=== PATIENT | male | born 1945 | race Caucasian/White ===

== ENCOUNTER 2017-07-06 08:24 | Day surgery (SDC) | payer MEDICARE, BC ==
[~2017-07-06] VITALS: Ht 182.9 cm; Wt 115.7 kg
[~2017-07-06 08:24] MED LIST: Aspir 8181 MG PO; BASAGLAR K100 UNIT/1 SC; Flovent 110 MCG12 GM INH; Glucophage1000 MG PO; LOSA25 PO; SIMV40 PO; Vitamin D2000 UNIT PO
== END 2017-07-06 22:46 | disposition home or self-care (01) ==
LOC: ORSCMMR 08:24
PROVIDERS: Internal Medicine Gastroenterology
PROC: 0DBL8ZX Excision of Transverse Colon, Via Natural or Artificial Opening Endoscopic, Diagnostic (ICD-10-PCS; principal; 2017-07-06 09:30)
PROC: 3E0H8GC Introduction of Other Therapeutic Substance into Lower GI, Via Natural or Artificial Opening Endoscopic (ICD-10-PCS; principal; 2017-07-06 09:30)
PROC: 0DBM8ZX Excision of Descending Colon, Via Natural or Artificial Opening Endoscopic, Diagnostic (ICD-10-PCS; principal; 2017-07-06 09:30)
PROC: 0DBK8ZX Excision of Ascending Colon, Via Natural or Artificial Opening Endoscopic, Diagnostic (ICD-10-PCS; principal; 2017-07-06 09:30)
DX: Z12.11 Encounter for screening for malignant neoplasm of colon (principal); D12.3 Benign neoplasm of transverse colon; D12.4 Benign neoplasm of descending colon; D12.2 Benign neoplasm of ascending colon; K63.5 Polyp of colon; E11.9 Type 2 diabetes mellitus without complications; J44.9 Chronic obstructive pulmonary disease, unspecified; Z87.891 Personal history of nicotine dependence; G47.33 Obstructive sleep apnea (adult) (pediatric); Z79.82 Long term (current) use of aspirin; Z79.899 Other long term (current) drug therapy; K64.8 Other hemorrhoids
CPT/HCPCS: 82947; 88305; J2250; J3010; J7120

== ENCOUNTER → 2017-09-21 | Outpatient (CLI) | payer MEDICARE, BC ==
[2017-09-21 18:49] LABS: Percent Saturation 20.8 % (20.0-50.0)
== END | disposition home or self-care (01) ==
LOC: LAB SHORT 10:00 → LAB 10:00
PROVIDERS: Internal Medicine Hematology & Oncology
DX: G60.9 Hereditary and idiopathic neuropathy, unspecified (principal); D64.9 Anemia, unspecified
CPT/HCPCS: 82607; 82728; 82746; 83540; 83550

== ENCOUNTER → 2020-02-18 | Outpatient (CLI) | payer MEDICARE, BC ==
[2020-02-18 10:40] LABS: Source, Urine Clean Catch
[2020-02-18 12:37] LABS: Bilirubin, Urine Neg (Neg); Blood, Urine Neg (Neg); Glucose Qualitative, Urine 1+ (Neg); Ketones, Urine Neg (Neg); Leukocyte Esterase, Urine Neg (Neg); Nitrite, Urine Neg (Neg); Protein, Urine Neg (Neg); Urobilinogen, Urine NORM (Normal)
[2020-02-18 12:46] LABS: Appearance, Urine Clear (Clear); Color, Urine Yellow (P-Yellow)
== END | disposition home or self-care (01) ==
LOC: LAB SHORT 10:35 → PLD 10:35
PROVIDERS: Family Medicine
DX: R31.9 Hematuria, unspecified (principal); R63.4 Abnormal weight loss
CPT/HCPCS: 81003

== ENCOUNTER 2022-07-16 17:29 | Inpatient (IN) | payer MEDICARE, BC ==
[~2022-07-16] VITALS: Ht 182.9 cm; Wt 107.5 kg
[~2022-07-16 17:29] MED LIST changes: +TAMS.4ER PO
[2022-07-16 18:13] LABS: BASOPHILS ABSOLUTE AUTO 0.04 K/mm3 (0.00-0.23); BASOPHILS PERCENT AUTO 0 % (0-2); EOSINOPHILS ABSOLUTE AUTO 0.03 K/mm3 (0.00-0.68); EOSINOPHILS PERCENT AUTO 0 % (0-6); Hematocrit 44.1 % (37.0-53.0); Hemoglobin 14.7 g/dL (13.5-17.5); IMMATURE GRAN ABSOLUTE AUTO 0.04 K/mm3 (0.00-0.10); IMMATURE GRAN PERCENT AUTO 0 % (0-1); LYMPHOCYTES ABSOLUTE AUTO 0.88 K/mm3 (0.84-5.20); LYMPHOCYTES PERCENT AUTO 9 % (21-46); MONOCYTES ABSOLUTE AUTO 0.57 K/mm3 (0.16-1.47); MONOCYTES PERCENT AUTO 6 % (4-13); Mean Corpuscular HGB 29.9 pg (26.0-34.0); Mean Corpuscular HGB Conc 33.3 g/dL (31.5-36.5); Mean Corpuscular Volume 90 fL (80-100); NEUTROPHILS ABSOLUTE AUTO 8.42 K/mm3 (1.96-9.15); NEUTROPHILS PERCENT AUTO 84 % (41-73); Platelet Count 275 K/mm3 (150-400); RDW Coefficient Variation 12.6 % (11.7-14.2); RDW Standard Deviation 41.2 fL (35.1-46.3); Red Blood Cell Count 4.92 M/mm3 (4.30-5.90); White Blood Cell Count 9.98 K/mm3 (4.00-11.30)
[2022-07-16 18:36] LABS: Albumin, Blood 3.9 g/dL (3.4-5.0); Albumin/Globulin Ratio 1.1 (0.8-1.8); Bilirubin, Total 0.5 mg/dL (0.1-1.0); Bun/Creatinine Ratio 24.4 (12.0-20.0); Calcium, Blood 9.1 mg/dL (8.5-10.1); Creatinine, Blood 0.9 mg/dL (0.60-1.20); Globulin, Blood 3.7 g/dL (2.2-4.0); Potassium, Blood 3.9 mmol/L (3.5-5.5); Total Protein, Blood 7.6 g/dL (6.4-8.2)
[2022-07-16] MEDS ORDERED: FINA5 PO (19:11)
[2022-07-16] MEDS ORDERED: Ventolin/Prove6.7 GM (19:11)
[2022-07-17 04:18] LABS: BASOPHILS ABSOLUTE AUTO 0.02 K/mm3 (0.00-0.23); BASOPHILS PERCENT AUTO 0 % (0-2); EOSINOPHILS ABSOLUTE AUTO 0.01 K/mm3 (0.00-0.68); EOSINOPHILS PERCENT AUTO 0 % (0-6); Hematocrit 41.6 % (37.0-53.0); Hemoglobin 13.6 g/dL (13.5-17.5); IMMATURE GRAN ABSOLUTE AUTO 0.04 K/mm3 (0.00-0.10); IMMATURE GRAN PERCENT AUTO 0 % (0-1); LYMPHOCYTES ABSOLUTE AUTO 1.11 K/mm3 (0.84-5.20); LYMPHOCYTES PERCENT AUTO 11 % (21-46); MONOCYTES ABSOLUTE AUTO 0.91 K/mm3 (0.16-1.47); MONOCYTES PERCENT AUTO 9 % (4-13); Mean Corpuscular HGB 29.8 pg (26.0-34.0); Mean Corpuscular HGB Conc 32.7 g/dL (31.5-36.5); Mean Corpuscular Volume 91 fL (80-100); Mean Platelet Volume 10.7 fL (9.1-12.4); NEUTROPHILS ABSOLUTE AUTO 8.12 K/mm3 (1.96-9.15); NEUTROPHILS PERCENT AUTO 80 % (41-73); Platelet Count 250 K/mm3 (150-400); RDW Coefficient Variation 12.8 % (11.7-14.2); RDW Standard Deviation 42.2 fL (35.1-46.3); Red Blood Cell Count 4.57 M/mm3 (4.30-5.90); White Blood Cell Count 10.21 K/mm3 (4.00-11.30)
[2022-07-17 04:37] LABS: Bun/Creatinine Ratio 27.7 (12.0-20.0); Calcium, Blood 8.4 mg/dL (8.5-10.1); Creatinine, Blood 0.76 mg/dL (0.60-1.20); Potassium, Blood 3.5 mmol/L (3.5-5.5)
--- NOTE | 2022-07-17 07:56 | NUR ---
ADMITTED DURING NOC FOR ABD MASS WTIH MET LESIONS. FAMILY AT BEDSIDE. PT WITH NG PATENT OF PALE GREEN. DILAUDID ORDERED FOR PAIN REPORTED EFFECTIVE. WAITING SURGICAL CX.
--- NOTE | 2022-07-17 14:01 | NUR ---
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
--- NOTE | 2022-07-17 14:09 | NUR ---
Pastoral visitation. Pt was en route to surgery with family close by, escorting him down the [place]. Family appeared supportive and stopped to provide opportunity for pre-surgical prayer for consolation which was provided. Pt appeared in good spirits and family proceeded to the waiting area. Pastoral care to remain available as needed.
--- NOTE | 2022-07-17 19:36 | NUR ---
SHIFT SUMMARY PT A&OX4, VSS/3LNC, PAIN MANAGED, STAND PIVOT WITH 2 PP MOD ASSIST TO BED FROM FAMILY JULIETA AT BEDSIDE. REPORT TO YISEL CORCORAN.
[2022-07-17] MEDS ORDERED: BASAGLAR K100 UNIT/1 SC (23:52)
--- NOTE | 2022-07-18 05:31 | NUR ---
SHIFT SUMMARY PT A&OX4, PLEASANT AND COOPERATIVE WITH CARE. NO ACUTE CHANGES. MEDICATED TWICE FOR PAIN. NPO, NG TO INT SUCTION. MOURA PATIENT AND DRAINING TO GRAVITY. OSTOMY OUTPUT BROWN/LIQUIDY. MIDLINE AQUACEL WITH A FEW AREAS OF LIGHT SHADOWING. CALLS APPROPRIATELY, CALL LIGHT WITHIN REACH.
--- NOTE | 2022-07-18 13:34 | NUR ---
PT UP TO CHAIR AT BEDSIDE. SBA WITH TRANSFER. PT REPORTS SOME PAIN WITH ROLLING OUT OF BED BUT TOLERATED WELL. PASSING GAS FROM STOMA. NGT CANISTER CHANGED. 400 IN CANISTER SINCE PREVIOUS SHIFT. PT HAS EATEN APPROX 300 ML OF ICE CHIPS.
--- NOTE | 2022-07-18 16:14 | NUR ---
SHIFT SUMMARY POD 1 EXLAP WITH NEW COLOSTOMY PT REPORTS PAIN TOLERABLE PER EMAR, IMPROVED SINCE HE GOT UP TO CHAIR. IN CHAIR FOR MOST OF SHIFT. PASSING FLATUS THROUGH STOMA, PT PARTICIPATING IN EDUCATION, LEARNING TO BURP OSTOMY. PT RECEPTIVE TO EDUCATION AND ASKING QUESTIONS. MIDLINE INCISION WITH SMALL SHADOWED SPOTS, UNCHANGED SINCE THIS AM. USING INCINTIVE SPIROMETER FREQUENTLY. MOURA REMOVED, PT VOIDING. NGT REMAINS TO INTERMITTENT SUCTION. SECRETIONS CLEARER THIS AFTERNOON, PRIMARILY ICE CHIPS PATIENT HAS BEEN EATING. PLAN IS TO CONTINUE AMBULATION AND AWAIT RETURN OF BOWEL FUNCTION.
[2022-07-19 06:17] LABS: BASOPHILS ABSOLUTE AUTO 0.05 K/mm3 (0.00-0.23); BASOPHILS PERCENT AUTO 1 % (0-2); EOSINOPHILS ABSOLUTE AUTO 0.08 K/mm3 (0.00-0.68); EOSINOPHILS PERCENT AUTO 1 % (0-6); Hematocrit 39.6 % (37.0-53.0); Hemoglobin 12.9 g/dL (13.5-17.5); IMMATURE GRAN ABSOLUTE AUTO 0.05 K/mm3 (0.00-0.10); IMMATURE GRAN PERCENT AUTO 1 % (0-1); LYMPHOCYTES ABSOLUTE AUTO 1.26 K/mm3 (0.84-5.20); LYMPHOCYTES PERCENT AUTO 12 % (21-46); MONOCYTES ABSOLUTE AUTO 1.21 K/mm3 (0.16-1.47); MONOCYTES PERCENT AUTO 12 % (4-13); Mean Corpuscular HGB 30.5 pg (26.0-34.0); Mean Corpuscular HGB Conc 32.6 g/dL (31.5-36.5); Mean Corpuscular Volume 94 fL (80-100); Mean Platelet Volume 10.4 fL (9.1-12.4); NEUTROPHILS ABSOLUTE AUTO 7.48 K/mm3 (1.96-9.15); NEUTROPHILS PERCENT AUTO 74 % (41-73); Platelet Count 231 K/mm3 (150-400); RDW Coefficient Variation 12.9 % (11.7-14.2); Red Blood Cell Count 4.23 M/mm3 (4.30-5.90); White Blood Cell Count 10.13 K/mm3 (4.00-11.30)
--- NOTE | 2022-07-19 06:31 | NUR ---
SHIFT SUMMARY PT A&OX4, PLEASANT AND COOPERATIVE. NO ACUTE CHANGES, VSS. MEDICATED FOR PAIN TWICE. REMAINS NPO, ASIDE FROM SOME ICE CHIPS. NGT TO INT SUCTION, BROWN OUTPUT. MIDLINE AQUACEL WITH A FEW SHADOWED AREAS. OSTOMY OUTPUT BROWN/LIQUIDY, PASSING FLATUS. PT SBA TO BATHROOM. CALLS APPROPRIATELY, CALL LIGHT WITHIN REACH.
[2022-07-19 06:37] LABS: Bun/Creatinine Ratio 25.6 (12.0-20.0); Calcium, Blood 8.5 mg/dL (8.5-10.1); Creatinine, Blood 0.98 mg/dL (0.60-1.20); Potassium, Blood 3.9 mmol/L (3.5-5.5)
--- NOTE | 2022-07-19 16:28 | NUR ---
SHIFT SUMMARY POD 2 COLECTOMY WITH COLOSTOMY. PT ADVANCED TO CLEAR LIQUIDS TODAY, SPOKE WITH PATIENT ABOUT GOING SLOW AND TAKING IN SMALL AMOUNTS, HE HAS BEEN FOLLOWING THE ORDERS WELL. VERY EXCITED TO EAT FOOD. MINIMAL OUTPUT FROM COLOSTOMY TODAY, PASSING FLATUS. EDUCATING PATIENT ON BURPING AND EMPTYING BAG, HE IS ENGAGED AND ASKS QUESTIONS. AMBULATING FREQUENTLY IN THE HALLS, REPORTS PAIN MUCH IMPROVED TODAY AND HAS DENIED NEED FOR MEDICATION TODAY.
--- NOTE | 2022-07-19 17:15 | NUR ---
Pt. is awake sittiing in a chair and welcomes my visit. Pt. is pleasant and displays an attitude of optimism. As we facilitate a life review the Pt. verbalizes that he lost his recently. had battled dementia and then had a stroke. Pt. displayed evidence of genuine grief as he recalled the story of his . With theraputic listening and a calm encouraging presence, Pt. was able to cathartically share some of his grief. As pastoral care is adminisitered, rapport is established. Pt. is considering [employer] after he recovers from his present surgery. Prayed for Pt. and will provide him with [facility] info. Pt. verbalized gratitude for the spiritual care visit.
--- NOTE | 2022-07-20 05:06 | NUR ---
SHIFT SUMMARY NO ACUTE CHANGES TO REPORT OVERNIGHT. PT HAS RESTED T/O THE NIGHT, SOME ABD PAIN THIS SHIFT. MEDICATED PER EMAR WITH EFFECT. IV ANTIBIOTICS CONTINUED PER ORDERS. PT HAS BEEN INDEPENDENT IN THE ROOM. PT TOLERATING PO INTAKE. NOT VERY MUCH OUTPUT IN OSTOMY THIS SHIFT, OUTPUT IS BROWN AND LIQUID. VITALS STABLE. PLAN IS FOR MORE OSTOMY TEACHING TODAY. BED IN LOWEST POSITION, CALL LIGHT WITHIN REACH.
[2022-07-20 05:25] LABS: BASOPHILS ABSOLUTE AUTO 0.06 K/mm3 (0.00-0.23); BASOPHILS PERCENT AUTO 1 % (0-2); EOSINOPHILS ABSOLUTE AUTO 0.37 K/mm3 (0.00-0.68); EOSINOPHILS PERCENT AUTO 5 % (0-6); Hematocrit 36.9 % (37.0-53.0); IMMATURE GRAN ABSOLUTE AUTO 0.03 K/mm3 (0.00-0.10); IMMATURE GRAN PERCENT AUTO 0 % (0-1); LYMPHOCYTES ABSOLUTE AUTO 1.23 K/mm3 (0.84-5.20); LYMPHOCYTES PERCENT AUTO 17 % (21-46); MONOCYTES ABSOLUTE AUTO 0.84 K/mm3 (0.16-1.47); MONOCYTES PERCENT AUTO 12 % (4-13); Mean Corpuscular HGB 29.9 pg (26.0-34.0); Mean Corpuscular HGB Conc 32.5 g/dL (31.5-36.5); Mean Corpuscular Volume 92 fL (80-100); Mean Platelet Volume 10.4 fL (9.1-12.4); NEUTROPHILS ABSOLUTE AUTO 4.54 K/mm3 (1.96-9.15); NEUTROPHILS PERCENT AUTO 64 % (41-73); Platelet Count 230 K/mm3 (150-400); RDW Coefficient Variation 12.4 % (11.7-14.2); RDW Standard Deviation 41.9 fL (35.1-46.3); Red Blood Cell Count 4.02 M/mm3 (4.30-5.90); White Blood Cell Count 7.07 K/mm3 (4.00-11.30)
[2022-07-20 05:43] LABS: Bun/Creatinine Ratio 27.6 (12.0-20.0); Creatinine, Blood 0.8 mg/dL (0.60-1.20); Potassium, Blood 3.5 mmol/L (3.5-5.5)
--- NOTE | 2022-07-20 09:47 | NUR ---
Pt. is walking around his room when he welcomes my visit. Pt.is pleasant and verbalizes his understanding of what needs to take place before can be discharged. Pt. displayed evidence of optimism, and confidence in beating his prognosis. Provided Pt. with information on [facility] per our discussion yeaterday about the recent loss of his son. Pt. verbalizedgratitude for the spiritual care visit.
--- NOTE | 2022-07-20 17:16 | NUR ---
SUMMARY NO ACUTE CHANGES T/O SHIFT. PT WORKED WITH THERAPY AND IS INDEPENDENT. HAS NOT REQUIRED MEDS FOR PAIN T/O SHIFT, STATING TOLERABLE. EMTPIED AND BURPED OWN OSTOMY APPLIANCE. TOLERATED FULL LIQUID LUNCH. CALL LIGHT IN REACH.
--- NOTE | 2022-07-21 07:50 | NUR ---
summary med po x2 for pain tonight.ambulating in halls without distress. ostomy patent of brown liquid.
--- NOTE | 2022-07-21 08:08 | NUR ---
DR HOLLINGSWORTH IN TO SEE PT.
--- NOTE | 2022-07-21 13:48 | NUR ---
assisted with ostomy dressing change with artie miles rn. stoma was red. patient education on how to change ostomy dressing. surgical dressing changed and cleaned on abdomen. On the lower left and right bottom of ostomy dressing there was two blisters. One on the lower right, and lower left.
--- NOTE | 2022-07-21 17:32 | NUR ---
No acute changes. patient tolerated diet change. patient education given by artie miles on ostomy care. assisted with ostomy dressing change. Patient was ready to learn about ostomy care. medicated once for pain. patient visited with family off and on during the day.
--- NOTE | 2022-07-21 17:38 | NUR ---
REVIEWED AND AGREE WITH SN RODNEY Berman'S SUMMARY.
[2022-07-22 04:09] LABS: BASOPHILS ABSOLUTE AUTO 0.07 K/mm3 (0.00-0.23); BASOPHILS PERCENT AUTO 1 % (0-2); EOSINOPHILS ABSOLUTE AUTO 0.48 K/mm3 (0.00-0.68); EOSINOPHILS PERCENT AUTO 7 % (0-6); Hematocrit 36.9 % (37.0-53.0); Hemoglobin 12.4 g/dL (13.5-17.5); IMMATURE GRAN ABSOLUTE AUTO 0.15 K/mm3 (0.00-0.10); IMMATURE GRAN PERCENT AUTO 2 % (0-1); LYMPHOCYTES ABSOLUTE AUTO 1.48 K/mm3 (0.84-5.20); LYMPHOCYTES PERCENT AUTO 21 % (21-46); MONOCYTES ABSOLUTE AUTO 0.89 K/mm3 (0.16-1.47); MONOCYTES PERCENT AUTO 12 % (4-13); Mean Corpuscular HGB 30.5 pg (26.0-34.0); Mean Corpuscular HGB Conc 33.6 g/dL (31.5-36.5); Mean Corpuscular Volume 91 fL (80-100); Mean Platelet Volume 10.7 fL (9.1-12.4); NEUTROPHILS ABSOLUTE AUTO 4.12 K/mm3 (1.96-9.15); NEUTROPHILS PERCENT AUTO 57 % (41-73); Platelet Count 284 K/mm3 (150-400); RDW Coefficient Variation 12.4 % (11.7-14.2); RDW Standard Deviation 40.3 fL (35.1-46.3); Red Blood Cell Count 4.07 M/mm3 (4.30-5.90); White Blood Cell Count 7.19 K/mm3 (4.00-11.30)
--- NOTE | 2022-07-22 07:26 | NUR ---
SUMMARY PT WITH NO ACUTE CHANGES.
[2022-07-22] MEDS ORDERED: Acetaminophen650 M1 PO (11:44)
[2022-07-22] MEDS ORDERED: DULCOLAX400 MG/5 M PO (11:45)
[2022-07-22] MEDS ORDERED: OXYC5 PO (11:47)
--- NOTE | 2022-07-22 12:00 | NUR ---
SHIFT SUMMARY PT A&OX4, VSS/RA, JAYLA PO, VOIDING WELL, AMB INDEPENDENTLY, DENIES PAIN, OSTOMY WITH BROWN LIQUID/START OF BROWN STOOL AND FLATUS-PT MANAGES HIMSELF. OSTOMY SUPPLIES PROVIDED TO PT FOR SKIN CARE, APPLIANCE CHANGE X4 ADHESIVE/STOMA PASTE AND STOMA POWDER AND ADH REMOVER. DISCUSSED CONVATE SAMPLE YENNY WAS ORDERED AND PT SHOULD EXPECT A TELEPHONE CALL OR [facility] FROM [facility]. AQUACEL DRESSING AND MEDIPORE DRESSINGS PROVIDED TO PT TO COVER MIDLINE INCISION CHRISTINA FOR 2 WEEKS UNTIL FU APPT WITH SURGEON. REPORT PROVIDED TO MARLEY CORCORAN.
--- NOTE | 2022-07-22 13:07 | NUR ---
DISCHARGE PT PROVIDED WITH WRITTEN AND VERBAL DISCHARGE INSTRUCTIONS; PT AND HIS SISTER VERBALIZED UNDERSTANDING. OSTOMY EDUCATION PROVIDED BY CATIA CORCORAN. DRESSINGS AND OSTOMY SUPPLIES PROVIDED. PT'S OSTOMY APPLIANCE CAME OFF PRIOR TO DISCHARGE, PT WAS ASSISTED TO CLEAN UP AND ATTATCH A NEW BAG ON THE OSTOMY APPLIANCE. PAIN MANAGED AT TIME OF DISCHARGE. SCRIPT PROVIDED FOR PAIN MEDICATION. MEDICATIONS FAXED TO [facility] PER PT REQUEST AND CONFIRMATION OF FAX RECEIVED. PT ASSISTED OUT IN W/C AT 1310.
== END 2022-07-22 13:11 | disposition home or self-care (01) | DRG 330 ==
LOC: ER 17:29 → SURS 20:22
PROVIDERS: Family Medicine; Student in an Organized Health Care Education/Training Program; Surgery; ADMIT Hospitalist
PROC: 0DBU0ZZ Excision of Omentum, Open Approach (ICD-10-PCS; 2022-07-17)
PROC: 0DNU0ZZ Release Omentum, Open Approach (ICD-10-PCS; 2022-07-17)
PROC: 0DNW0ZZ Release Peritoneum, Open Approach (ICD-10-PCS; 2022-07-17)
PROC: 0DH67UZ Insertion of Feeding Device into Stomach, Via Natural or Artificial Opening (ICD-10-PCS; principal; 2022-07-17 13:45)
PROC: 0D1L0Z4 Bypass Transverse Colon to Cutaneous, Open Approach (ICD-10-PCS; 2022-07-17 13:45)
PROC: 0DTL0ZZ Resection of Transverse Colon, Open Approach (ICD-10-PCS; 2022-07-17 13:45)
DX: C18.5 Malignant neoplasm of splenic flexure (principal); C77.2 Secondary and unspecified malignant neoplasm of intra-abdominal lymph nodes; C78.7 Secondary malignant neoplasm of liver and intrahepatic bile duct; K42.0 Umbilical hernia with obstruction, without gangrene; E66.9 Obesity, unspecified; E11.9 Type 2 diabetes mellitus without complications; J44.9 Chronic obstructive pulmonary disease, unspecified; G47.33 Obstructive sleep apnea (adult) (pediatric); I10 Essential (primary) hypertension; N40.0 Benign prostatic hyperplasia without lower urinary tract symptoms; D50.9 Iron deficiency anemia, unspecified; E78.5 Hyperlipidemia, unspecified; Z98.890 Other specified postprocedural states; Z87.891 Personal history of nicotine dependence; Z68.30 Body mass index [BMI] 30.0-30.9, adult; Z99.89 Dependence on other enabling machines and devices; Z79.4 Long term (current) use of insulin; Z79.51 Long term (current) use of inhaled steroids; Z79.82 Long term (current) use of aspirin; Z79.899 Other long term (current) drug therapy
CPT/HCPCS: 36415; 71045; 74177; 80048; 80053; 82947; 83605; 83690; 85025; 88305; 88307; 88309; 94640; 94664; 94760; 96374-59; 96375; 96376; 97112; 97161; 97166; 97530; 97535; 99285-25; A9270; J1100; J1170; J1650; J1815; J1885; J2270; J2405; J2543; J2704; J3010; J7030; Q9967

== ENCOUNTER 2022-08-11 06:17 | Day surgery (SDC) | payer MEDICARE, BC ==
[2022-08-11] VITALS (9 sets, daily range): BP systolic 98–121; BP diastolic 57–80
[~2022-08-11] VITALS: Ht 180.3 cm; Wt 101.0 kg
[~2022-08-11 06:17] MED LIST changes: +Acetaminophen650 M1 PO; +DULCOLAX400 MG/5 M PO; +FINA5 PO; +OXYC5 PO; +Ventolin/Prove6.7 GM
--- NOTE | 2022-08-11 08:05 | NUR ---
History, Chart, Medications and Allergies reviewed before start of procedure.LUNGS CLEAR, PRE OP TEACHING DONE. SON AT BEDSIDE. H/A, GLASSES AND DENTURES PLACED IN LABELED CONTAINERS AND INTO OR WITH PATIENT.
--- NOTE | 2022-08-11 10:23 | NUR ---
DISCHARGE NOTE Discharge instructions reviewed with patient. Patient verbalizes understanding. Copy given to patient to take home. Discharged via wheelchair to private car for ride home. Lungs clear T/O to Auscultation.
== END 2022-08-11 10:15 | disposition home or self-care (01) ==
LOC: ORSCMMR 06:17 → ORD 08:00 → ORSCMMR 08:00
PROVIDERS: Surgery
PROC: B543ZZA Ultrasonography of Right Jugular Veins, Guidance (ICD-10-PCS; principal; 2022-08-11 08:00)
PROC: 0JH63WZ Insertion of Totally Implantable Vascular Access Device into Chest Subcutaneous Tissue and Fascia, Percutaneous Approach (ICD-10-PCS; principal; 2022-08-11 08:00)
PROC: 05HM33Z Insertion of Infusion Device into Right Internal Jugular Vein, Percutaneous Approach (ICD-10-PCS; principal; 2022-08-11 08:00)
DX: C18.4 Malignant neoplasm of transverse colon (principal); I10 Essential (primary) hypertension; J44.9 Chronic obstructive pulmonary disease, unspecified; Z87.891 Personal history of nicotine dependence; E11.9 Type 2 diabetes mellitus without complications; N40.0 Benign prostatic hyperplasia without lower urinary tract symptoms; Z79.84 Long term (current) use of oral hypoglycemic drugs; Z79.82 Long term (current) use of aspirin; Z79.899 Other long term (current) drug therapy; E78.5 Hyperlipidemia, unspecified
CPT/HCPCS: 77001; 82947; C1788; J0690; J1100; J1642; J2405; J2704; J3010; J7120

== ENCOUNTER 2023-12-10 15:57 | Emergency (ER) | payer MEDICARE, BC ==
[~2023-12-10] VITALS: Ht 180.3 cm; Wt 104.3 kg
[2023-12-10 16:07] VITALS: BP 143/75
[2023-12-10] MEDS ORDERED: Trimethoprim/Sulfamethoxazole DS Tab PO ONE (16:15)
[2023-12-10] MEDS ORDERED: CEPH500 PO (16:15)
[2023-12-10] MEDS ORDERED: Bactrim Ds Tab1 EACH PO (16:15)
[2023-12-10] MEDS ORDERED: Cephalexin Monohydrate 500 MG Cap PO ONE (16:15)
== END 2023-12-10 16:30 | disposition home or self-care (01) ==
LOC: ER 15:57
DX: J34.0 Abscess, furuncle and carbuncle of nose (principal); E11.9 Type 2 diabetes mellitus without complications; J44.9 Chronic obstructive pulmonary disease, unspecified; G47.30 Sleep apnea, unspecified; I10 Essential (primary) hypertension; E78.5 Hyperlipidemia, unspecified; Z79.899 Other long term (current) drug therapy; Z79.82 Long term (current) use of aspirin; Z79.84 Long term (current) use of oral hypoglycemic drugs; Z79.4 Long term (current) use of insulin; Z87.891 Personal history of nicotine dependence
CPT/HCPCS: 99283; A9270

== ENCOUNTER 2024-02-07 10:01 | Day surgery (SDC) | payer MEDICARE, BC ==
[2024-02-07] VITALS (9 sets, daily range): BP systolic 139–160; BP diastolic 83–96
[~2024-02-07] VITALS: Ht 179 cm; Wt 106.6 kg
[~2024-02-07 10:01] MED LIST changes: +Bactrim Ds Tab1 EACH PO; +CEPH500 PO; +CeFAZolin Sodium 2,000 MG in NS 100 ML IV SCH; +Dexamethasone Sod Phos 10 MG/ML 1ML VIAL ONE; +FLUTICASONE PRO12 GM INH; +FentaNYL Citrate 50 MCG/ML 2 ML Injection ONE; -Flovent 110 MCG12 GM INH; +Lactated Ringer's 1,000 ML IV SCH; +Ondansetron HCl 2 MG / ML 2ML Vial ONE; +propofoL 20 ML IV ONE
[2024-02-07] MEDS ORDERED: ZYRTEC10 M1 PO (10:31)
[2024-02-07] MEDS ORDERED: CEPH500 PO (10:33)
[2024-02-07] MEDS ORDERED: BASAGLAR K100 UNIT/8 SC (10:34)
[2024-02-07] MEDS ORDERED: TIOTROPIUM BRO18 MCG INH (10:35)
[2024-02-07] MEDS ORDERED: Bupivacaine 0.5% HCl 5 MG/ML 30MLVIAL ONE (11:24)
[2024-02-07] MEDS ORDERED: HYDROcodone 5-APAP 325 TAB PO PRN (13:20)
--- NOTE | 2024-02-07 13:20 | NUR ---
DR BURCH VERIFIES [facility] PLACEMENT
--- NOTE | 2024-02-07 13:55 | NUR ---
Discharge instructions reviewed with patient. Patient verbalizes understanding. Copy given to patient to take home. Dressings c/d/i. 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 Patient States Post-Procedure ride home has been arranged. Discharged via wheelchair to private car for ride home.
== END 2024-02-07 14:00 | disposition home or self-care (01) ==
LOC: ORSCMMR 10:01 → ORD 11:30 → ORSCMMR 11:30
PROVIDERS: Surgery
PROC: 05HN33Z Insertion of Infusion Device into Left Internal Jugular Vein, Percutaneous Approach (ICD-10-PCS; principal; 2024-02-07 11:30)
PROC: B544ZZA Ultrasonography of Left Jugular Veins, Guidance (ICD-10-PCS; principal; 2024-02-07 11:30)
PROC: 0JPT3XZ Removal of Tunneled Vascular Access Device from Trunk Subcutaneous Tissue and Fascia, Percutaneous Approach (ICD-10-PCS; principal; 2024-02-07 11:30)
DX: T80.212A Local infection due to central venous catheter, initial encounter (principal); C18.9 Malignant neoplasm of colon, unspecified; J44.9 Chronic obstructive pulmonary disease, unspecified; K21.9 Gastro-esophageal reflux disease without esophagitis; I10 Essential (primary) hypertension; E11.9 Type 2 diabetes mellitus without complications; E78.5 Hyperlipidemia, unspecified; N40.0 Benign prostatic hyperplasia without lower urinary tract symptoms; Z79.84 Long term (current) use of oral hypoglycemic drugs; Z79.899 Other long term (current) drug therapy
CPT/HCPCS: 77001; 82947; C1788; J0690; J1100; J1642; J2405; J2704; J3010; J7120

== ENCOUNTER 2024-06-03 08:14 | Day surgery (SDC) | payer MEDICARE, BC ==
[~2024-06-03] VITALS: Ht 182.9 cm; Wt 106.4 kg
[~2024-06-03 08:14] MED LIST changes: +BASAGLAR K100 UNIT/8 SC; +BETA.05TCA TOP; -CeFAZolin Sodium 2,000 MG in NS 100 ML IV SCH; -Dexamethasone Sod Phos 10 MG/ML 1ML VIAL ONE; -FentaNYL Citrate 50 MCG/ML 2 ML Injection ONE; -Ondansetron HCl 2 MG / ML 2ML Vial ONE; +TIOTROPIUM BRO18 MCG INH; +ZYRTEC10 M1 PO; -propofoL 20 ML IV ONE
[2024-06-03 08:55] VITALS: BP 135/87
[2024-06-03] MEDS ORDERED: propofoL 100 ML IV ONE (09:04)
--- NOTE | 2024-06-03 09:15 | NUR ---
06/03/24 0915 Kathia Khoury History, Chart, Medications and Allergies reviewed before start of procedure.MONITOR INTACT WITH CONTINUOUS PULSE OXIMETRY, CONTINUOUS END TITAL CO2, 3-LEAD EKG AND INTERMITTENT BLOOD PRESSURE.3-LEAD EKG REVIEWED WITH PHYSICIAN PRIOR TO START OF PROCEDURE.O2 VIA POM INTACT THROUGHOUT SEDATION/PROCEDURE.
[2024-06-03 09:41] VITALS: BP 124/99
[2024-06-03 09:57] VITALS: BP 119/88
[2024-06-03 10:08] VITALS: BP 130/66
== END 2024-06-03 10:15 | disposition home or self-care (01) ==
LOC: ORSCMMR 08:14
PROVIDERS: Internal Medicine Gastroenterology
PROC: 0DBN8ZX Excision of Sigmoid Colon, Via Natural or Artificial Opening Endoscopic, Diagnostic (ICD-10-PCS; principal; 2024-06-03 09:30)
PROC: 0DBP8ZX Excision of Rectum, Via Natural or Artificial Opening Endoscopic, Diagnostic (ICD-10-PCS; principal; 2024-06-03 09:30)
DX: Z85.038 Personal history of other malignant neoplasm of large intestine (principal); Z85.05 Personal history of malignant neoplasm of liver; D12.5 Benign neoplasm of sigmoid colon; K62.1 Rectal polyp; I10 Essential (primary) hypertension; E78.5 Hyperlipidemia, unspecified; G47.33 Obstructive sleep apnea (adult) (pediatric); Z87.891 Personal history of nicotine dependence; E11.9 Type 2 diabetes mellitus without complications; E66.9 Obesity, unspecified; Z68.31 Body mass index [BMI] 31.0-31.9, adult; Z79.899 Other long term (current) drug therapy; Z79.84 Long term (current) use of oral hypoglycemic drugs; Z79.4 Long term (current) use of insulin
CPT/HCPCS: 82947; 88305; J2704; J7120

== ENCOUNTER → 2025-01-16 | Outpatient (CLI) | payer MEDICARE, BC ==
[~2025-01-16] MED LIST changes: -Lactated Ringer's 1,000 ML IV SCH
[2025-01-16 13:28] LABS: BASOPHILS ABSOLUTE AUTO 0.05 K/mm3 (0.00-0.23); BASOPHILS PERCENT AUTO 1 % (0-2); EOSINOPHILS ABSOLUTE AUTO 0.15 K/mm3 (0.00-0.68); EOSINOPHILS PERCENT AUTO 3 % (0-6); Hematocrit 41.3 % (37.0-53.0); Hemoglobin 13.6 g/dL (13.5-17.5); IMMATURE GRAN ABSOLUTE AUTO 0.05 K/mm3 (0.00-0.10); IMMATURE GRAN PERCENT AUTO 1 % (0-1); LYMPHOCYTES ABSOLUTE AUTO 1.48 K/mm3 (0.84-5.20); LYMPHOCYTES PERCENT AUTO 25 % (21-46); MONOCYTES ABSOLUTE AUTO 0.54 K/mm3 (0.16-1.47); MONOCYTES PERCENT AUTO 9 % (4-13); Mean Corpuscular HGB Conc 32.9 g/dL (31.5-36.5); Mean Corpuscular Volume 93 fL (80-100); NEUTROPHILS ABSOLUTE AUTO 3.62 K/mm3 (1.96-9.15); NEUTROPHILS PERCENT AUTO 62 % (41-73); NRBC ABSOLUTE 0.00 K/mm3 (0.00-0.02); NRBC Auto 0.0 /100 WBC (0.0-0.2); Platelet Count 158 K/mm3 (150-400); RDW Coefficient Variation 13.4 % (11.7-14.2); RDW Standard Deviation 45.9 fL (35.1-46.3)
[2025-01-16 14:17] LABS: Alanine Aminotransfer (ALT/SGP 53.0 U/L (12-78); Albumin, Blood 3.1 g/dL (3.4-5.0); Albumin/Globulin Ratio 0.9 (0.8-1.8); Anion Gap 9.0 mmol/L (3-11); Aspartate Aminotrans (AST/SGOT 27.0 U/L (12-37); Bilirubin, Total 0.5 mg/dL (0.1-1.0); Blood Urea Nitrogen 17.0 mg/dL (8-24); CO2, Blood 26.0 mmol/L (21-32); Calcium, Blood 9.2 mg/dL (8.5-10.1); Chloride, Blood 107.0 mmol/L (98-108); Creatinine, Blood 0.85 mg/dL (0.60-1.20); Globulin, Blood 3.5 g/dL (2.2-4.0); Glucose, Blood 138.0 mg/dL (70-99); Potassium, Blood 4.1 mmol/L (3.5-5.5); Sodium, Blood 138.0 mmol/L (136-145); Thyroid Stimulating Hormone 2.0 uIU/mL (0.360-4.800); Total Protein, Blood 6.6 g/dL (6.4-8.2)
== END ==
LOC: LAB 12:02 → LAB SHORT 12:02
PROVIDERS: Family Medicine
DX: J44.9 Chronic obstructive pulmonary disease, unspecified (principal); R06.00 Dyspnea, unspecified; R53.83 Other fatigue; E11.65 Type 2 diabetes mellitus with hyperglycemia
CPT/HCPCS: 80053; 83036; 83880; 84443; 85025

== ENCOUNTER 2025-03-20 09:37 | Day surgery (SDC) | payer MEDICARE, BC ==
[~2025-03-20 09:37] MED LIST changes: +Balanced Salt Epinephrine Irrigation Solution 500 mL IR SCH; +Moxifloxacin HCL 0.5 MG/0.1 ML 0.4MLSYR LEFTEYE SCH; +Ondansetron 4 MG SoluTab MM PRN; +PHENYLEPHRINE\\TROPICAMIDE\\TETRACAINE OPHTHALMIC DILATING SOLN LEFTEYE PRN; +Povidone-Iodine 450 DROP/30 ML Solution LEFTEYE SCH; +Povidone-Iodine 450 DROP/30 ML Solution ONE; +Tetracaine HCl/Pf 0.5% Opth Soln 4 ml ONE; +Triamcinolone Inj Susp 40 MG / ML 1ML Vial INJ SCH; +Triamcinolone Inj Susp 40 MG / ML 1ML Vial ONE
--- NOTE | 2025-03-20 10:38 | NUR ---
03/20/25 1038 Marcela Chapin 70 HR 94% O2 16 RR 151/92 BP
[2025-03-20] MEDS ORDERED: Tetracaine HCl 0.5% Opth Soln 15 ml LEFTEYE ONE (10:40)
[2025-03-20 10:58] VITALS: BP 155/94
== END 2025-03-20 11:20 | disposition home or self-care (01) ==
LOC: ORSCSDS 09:37
PROVIDERS: Ophthalmology
PROC: 08RK3JZ Replacement of Left Lens with Synthetic Substitute, Percutaneous Approach (ICD-10-PCS; principal; 2025-03-20 11:00)
DX: E11.36 Type 2 diabetes mellitus with diabetic cataract (principal); H25.812 Combined forms of age-related cataract, left eye; I10 Essential (primary) hypertension; E78.5 Hyperlipidemia, unspecified; N40.0 Benign prostatic hyperplasia without lower urinary tract symptoms; J44.9 Chronic obstructive pulmonary disease, unspecified; K21.9 Gastro-esophageal reflux disease without esophagitis; Z85.038 Personal history of other malignant neoplasm of large intestine; Z79.4 Long term (current) use of insulin; Z79.84 Long term (current) use of oral hypoglycemic drugs; Z79.899 Other long term (current) drug therapy
CPT/HCPCS: A9270; J3301; V2632

== ENCOUNTER 2025-03-27 09:29 | Day surgery (SDC) | payer MEDICARE, BC ==
[~2025-03-27] VITALS: Ht 182.9 cm; Wt 108.4 kg
[~2025-03-27 09:29] MED LIST changes: -Moxifloxacin HCL 0.5 MG/0.1 ML 0.4MLSYR LEFTEYE SCH; +Moxifloxacin HCL 0.5 MG/0.1 ML 0.4MLSYR RIGHTEYE SCH; -PHENYLEPHRINE\\TROPICAMIDE\\TETRACAINE OPHTHALMIC DILATING SOLN LEFTEYE PRN; +PHENYLEPHRINE\\TROPICAMIDE\\TETRACAINE OPHTHALMIC DILATING SOLN RIGHTEYE PRN; -Povidone-Iodine 450 DROP/30 ML Solution LEFTEYE SCH; +Povidone-Iodine 450 DROP/30 ML Solution RIGHTEYE SCH
--- NOTE | 2025-03-27 09:49 | NUR ---
03/27/25 0949 BALWINDER GERONIMO RESTING ON GURNEY, RAILS UP BRAKES LOCKED, CALL LIGHT IN REACH. PT DENIES NEEDS AT THIS TIME.
--- NOTE | 2025-03-27 10:18 | NUR ---
03/27/25 1018 Marcela Chapin 72 HR 95% O2 154/102 BP 16 RR
[2025-03-27] MEDS ORDERED: Tetracaine HCl 0.5% Opth Soln 15 ml RIGHTEYE ONE (10:19)
[2025-03-27 10:34] VITALS: BP 145/94
== END 2025-03-27 10:48 | disposition home or self-care (01) ==
LOC: ORSCSDS 09:29
PROVIDERS: Ophthalmology
PROC: 08RJ3JZ Replacement of Right Lens with Synthetic Substitute, Percutaneous Approach (ICD-10-PCS; principal; 2025-03-27 11:00)
DX: E11.36 Type 2 diabetes mellitus with diabetic cataract (principal); H25.811 Combined forms of age-related cataract, right eye; H21.81 Floppy iris syndrome; Z96.1 Presence of intraocular lens; Z87.891 Personal history of nicotine dependence; N40.0 Benign prostatic hyperplasia without lower urinary tract symptoms; J44.9 Chronic obstructive pulmonary disease, unspecified; K21.9 Gastro-esophageal reflux disease without esophagitis; E78.5 Hyperlipidemia, unspecified; I10 Essential (primary) hypertension; Z79.84 Long term (current) use of oral hypoglycemic drugs; Z79.4 Long term (current) use of insulin; Z79.899 Other long term (current) drug therapy
CPT/HCPCS: A9270; J3301; V2632